=== PATIENT | female | born 1980 | race Two or more races ===

== ENCOUNTER 2022-11-29 03:14 | Inpatient (IN) | payer MEDICAID ==
[~2022-11-29] VITALS: Ht 160 cm; Wt 111.8 kg
[~2022-11-29 03:14] MED LIST: ALUMSUS PO; OMEP20CA74 PO; PROM25TA5 PO; RANI-185 PO
[2022-11-29 03:58] LABS: Hemoglobin 12.8 g/dL (12.2-16.2); Mean Corpuscular Hemoglobin 26.9 pg (28.0-32.0)
[2022-11-29 03:59] LABS: Basophils # (auto) 0.1 10 ^3/uL (0-0.2); Basophils % (auto) 0.4 % (0.0-2.0); Eosinophils # (auto) 0.3 10 ^3/uL (0-0.8); Hematocrit 37.8 % (36.0-46.0); Lymphocytes # (auto) 1.5 10 ^3/uL (0.4-5.4); Mean Corpuscular Hgb Conc. 33.7 g/dL (32.0-36.0); Monocytes # (auto) 0.6 10 ^3/uL (0-1.3); Neutrophils # (auto) 12.5 10 ^3/uL (1.6-8.6); Neutrophils % (auto) 83.6 % (37.0-80.0); Nucleated Red Blood Cells % 0.1 %; Red Blood Cells 4.73 10^6/uL (4.0-5.20); Red Cell Distribution Width 14.6 % (11.8-14.3)
[2022-11-29 04:13] LABS: Albumin 3.2 g/dL (3.4-5.0); Calcium 8.6 mg/dL (8.5-10.1); Potassium 3.6 mmol/L (3.5-5.1)
[2022-11-29 04:19] LABS: Bilirubin, Total 0.9 mg/dL (0.2-1.0); Total Protein 8.3 g/dL (6.4-8.2)
[2022-11-29] MEDS ORDERED: SODIUM CHLORIDE 0.9% 1,000 ML IV ONE ×2 (07:00)
[2022-11-29] MEDS ORDERED: cefTRIAXone 1GM/50ML D5W 50 ML IV ONE (07:15)
[2022-11-29] MEDS ORDERED: VANCOMYCIN PER PHARMACY 0 MG IV SCH (09:00)
[2022-11-29] MEDS ORDERED: CLINDAMYCIN 600MG IV 50 ML IV ONE (09:00)
[2022-11-29] MEDS ORDERED: ACETAMINOPHEN 325 MG TAB PO PRN (09:00)
[2022-11-29] MEDS ORDERED: cefTRIAXone 1GM/50ML D5W 50 ML IV SCH (09:00)
[2022-11-29] MEDS: cefTRIAXone 1GM/50ML D5W 50 ML IV SCH (09:06)
[2022-11-29] MEDS ORDERED: DexAMETHasone SOD PHOS 10MG/1ML VIAL INJ IV ONE (09:15)
[2022-11-29 09:19] LABS: Cholesterol 167 mg/dL (< 200); Triglycerides 107 mg/dL (< 150)
[2022-11-29 09:22] LABS: HDL Cholesterol 41 mg/dL (40-59); LDL Cholesterol 117 mg/dL (< 100)
[2022-11-29] MEDS: DexAMETHasone SOD PHOS 10MG/1ML VIAL INJ IV SCH (11:20)
[2022-11-29] MEDS: SODIUM CHLORIDE 0.9% 1,000 ML IV SCH ×2 (12:47→22:20)
[2022-11-29] MEDS ORDERED: APIX5TAB PO (13:48)
[2022-11-29] MEDS: CLINDAMYCIN 600MG IV 50 ML IV SCH ×2 (14:23→21:52)
[2022-11-29 16:48] LABS: Urine Bacteria FEW /hpf (None Seen); Urine Blood Negative /uL (Negative); Urine Specific Gravity 1.004 (1.001-1.035); Urine WBC <1 /hpf (0 - 5)
[2022-11-29 18:42] VITALS: BP 118/68
[2022-11-29 20:00] VITALS: BP 118/68
[2022-11-29] MEDS ORDERED: TRAM50TA2 PO (20:01)
[2022-11-29] MEDS ORDERED: CYCL-614 PO (20:01)
[2022-11-29 22:00] VITALS: BP 118/68
[2022-11-30] VITALS (7 sets, daily range): BP systolic 100–111; BP diastolic 58–73
[2022-11-30] MEDS: APIXABAN 5 MG TAB PO SCH ×3 (01:47→21:56)
[2022-11-30] MEDS: CLINDAMYCIN 600MG IV 50 ML IV SCH ×3 (05:33→22:36)
[2022-11-30 07:06] LABS: Basophils # (auto) 0 10 ^3/uL (0-0.2); Eosinophils # (auto) 0 10 ^3/uL (0-0.8); Lymphocytes # (auto) 1.4 10 ^3/uL (0.4-5.4); Monocytes # (auto) 0.7 10 ^3/uL (0-1.3); Red Cell Distribution Width 14.9 % (11.8-14.3)
[2022-11-30 07:09] LABS: Basophils % (auto) 0.1 % (0.0-2.0); Hematocrit 37.7 % (36.0-46.0); Hemoglobin 12.6 g/dL (12.2-16.2); Lymphocytes % (auto) 10.8 % (10.0-50.0); Mean Corpuscular Hemoglobin 26.9 pg (28.0-32.0); Mean Corpuscular Hgb Conc. 33.5 g/dL (32.0-36.0); Mean Corpuscular Volume 80.4 fL (80.0-100.0); Monocytes % (auto) 5.7 % (0.0-12.0); Neutrophils # (auto) 10.7 10 ^3/uL (1.6-8.6); Neutrophils % (auto) 83.4 % (37.0-80.0); Nucleated Red Blood Cells % 0.1 %; Red Blood Cells 4.69 10^6/uL (4.0-5.20); White Blood Cell 12.9 10^3/uL (4.4-10.8)
[2022-11-30 07:43] LABS: Albumin 3.1 g/dL (3.4-5.0); Bilirubin, Total 0.3 mg/dL (0.2-1.0); Calcium 8.5 mg/dL (8.5-10.1); Potassium 4.3 mmol/L (3.5-5.1); Total Protein 7.2 g/dL (6.4-8.2)
[2022-11-30] MEDS: SODIUM CHLORIDE 0.9% 1,000 ML IV SCH (11:40)
[2022-11-30] MEDS ORDERED: traMADol HCL 50 MG TAB PO PRN (22:30)
[2022-12-01] MEDS: SODIUM CHLORIDE 0.9% 1,000 ML IV SCH (01:00)
[2022-12-01 05:00] VITALS: BP 101/57
[2022-12-01] MEDS: CLINDAMYCIN 600MG IV 50 ML IV SCH (05:28)
[2022-12-01] MEDS: DexAMETHasone SOD PHOS 10MG/1ML VIAL INJ IV SCH (08:59)
[2022-12-01] MEDS: APIXABAN 5 MG TAB PO SCH (08:59)
[2022-12-01] MEDS: cefTRIAXone 1GM/50ML D5W 50 ML IV SCH (08:59)
[2022-12-01 09:00] VITALS: BP 100/63
[2022-12-01] MEDS ORDERED: METH4PAK PO (13:16)
[2022-12-01] MEDS ORDERED: AUG875T PO (13:16)
[2022-12-01 13:21] VITALS: BP 108/76
== END 2022-12-01 13:40 | disposition home or self-care (01) | DRG 720 ==
LOC: EDBD 03:14 → ER 03:14 → OVERFLOW 09:00 → EAST 18:29
PROVIDERS: ADMIT Nurse Practitioner Family; ATTEND Family Medicine
DX: A41.9 Sepsis, unspecified organism (principal); E46 Unspecified protein-calorie malnutrition; E66.01 Morbid (severe) obesity due to excess calories; E86.0 Dehydration; J02.0 Streptococcal pharyngitis; F17.210 Nicotine dependence, cigarettes, uncomplicated; B95.0 Streptococcus, group A, as the cause of diseases classified elsewhere; Z20.822 Contact with and (suspected) exposure to COVID-19; R79.89 Other specified abnormal findings of blood chemistry; Z68.42 Body mass index [BMI] 45.0-49.9, adult; Z86.718 Personal history of other venous thrombosis and embolism; Z79.01 Long term (current) use of anticoagulants; Z90.49 Acquired absence of other specified parts of digestive tract
CPT/HCPCS: 36415; 70490; 80053; 80061; 81001; 83036; 83605; 84443; 85025; 85379; 87040; 87426; 87880; 96365; 96367; 96375; G0378; J0696; J1100; J3490